=== PATIENT | male | born 1940 | race Caucasian/White ===

== ENCOUNTER 2016-11-21 13:46 | Emergency (ER) | payer MEDICARE, MEDICAID ==
[~2016-11-21] VITALS: Ht 172.7 cm; Wt 86.4 kg
[~2016-11-21 13:46] MED LIST: ALBU8.5H2 IH; ASPI-973 PO; ATOR20TA PO; AZIT250T4 PO; BUDE0.5A2 IH; CALC500T53 PO; CHOL100043 PO; FLUT16SP NS; FUR20 PO; GLUC-181 PO; IPRA3AMP IH; MENT71OI TOPICAL; POTA10CA42 PO; PRED10TA21 PO; SENN25TA PO; SODI126M NS; TAMS0.4C29 PO
[2016-11-21 14:07] VITALS: BP 116/76; PULSE 46; RESP 19; O2SAT 95
--- NOTE | 2016-11-21 14:33 | ED.REPORT ---
HPI-General Illness Date of Service Nov 21, 2016 ED Provider: Jaimie Jay MD Pt is a 76 y/o male w/ a hx of severe COPD on 4L home O2, recurrent pneumonia, CAD, pulmonary nodule, melanoma, presenting to the ED with his c/o generalized weakness onset 6 days ago. Pt c/o associated increased SOB from baseline, increased cough. He denies CP, abdominal pain, nausea, vomiting, diarrhea. His symptoms today are very similar to previous episodes of pneumonia. He has been off hospice treatment for 1 week now. Code status via POLST form: DNR and DNI Nursing Notes Stated Complaint: LOW OXYGEN LEVEL Chief Complaint: Respiratory Distress Nursing Notes Reviewed: Yes Allergies: Coded Allergies: No Known Allergies (Unverified , 11/21/16) Scheduled Aspirin (Aspirin) 81 Mg Tablet.dr 81 MG PO DAILY Atorvastatin (Lipitor) 20 Mg Tablet 20 MG PO HS Azithromycin (Zithromax (Z-Pernell)) 250 Mg Tablet 250 MG PO Mon, Wed, Fri Azithromycin (Zithromax (Z-Pernell)) 250 Mg Tablet 250 MG PO DAILY Budesonide Neb Soln (Budesonide Neb Soln) 0.5 Mg/2 Ml Ampul.neb 0.5 MG IH BID Calcium Carbonate (Calcium Carbonate) 200 Mg Tab.chew 400 MG PO BID Cefuroxime Axetil (Cefuroxime) 500 Mg Tablet 500 MG PO BID Cholecalciferol (Vitamin D3) (Vitamin D) 1,000 Unit Tablet 1,000 UNIT PO 3XW take with tums Fluticasone Propionate (Fluticasone Propionate Nasal) 16 Gm [place].susp 2 SPRAY NS DAILY Furosemide (Furosemide) 20 Mg Tab 40 MG PO DAILY Gluc/Fransisco-MSM#1/C/Stephen/Jacob/Bor (Osteo Bi-Flex Caplet) 1 Each Tablet 2 EACH PO DAILY Menthol/Zinc Oxide Oint (Calmoseptine Oint) 71 Gm Oint...g. 1 APPLIC TOPICAL TID Potassium Chloride (Potassium Chloride) 10 Meq Capsule.er 10 MEQ PO DAILY TAKE WITH FOOD Prednisone (PredniSONE Dose Pernell) 10 Mg Tab.ds.pk 1 TABLET PO UD 4 tabs for 2 days, then 3 tabs for 2 days, then 2 tabs for 2 days, then 1 tab for 2 days Prednisone (PredniSONE) 10 Mg Tablet 10 MG PO DAILY 40mg daily for 7 days on 11/29, decrease to 30mg daily on 12/06 decrease to 20mg daily on 12/13 decrease to 10mg daily and continue Tamsulosin ER (Tamsulosin ER) 0.4 Mg Cap.er.24h 0.4 MG PO DAILY Scheduled PRN Albuterol HFA (Proair HFA) 8.5 Gm Hfa.aer.ad 2 PUFFS IH Q4 PRN PRN For Shortness of Breath Ipratropium/Albuterol Sulfate (Iprat-Albut 0.5-3(2.5) mg/3 mL Inhalant Soln) 3 Ml Ampul.neb 3 ML IH Q4 PRN PRN For Shortness of Breath Sennosides (Laxative) 25 Mg Tablet 1-2 TAB PO DAILY PRN PRN For Constipation Sodium Chloride (Saline Nasal Mist) 126 Ml Mist 1 SPRAY NS PRN PRN PRN For Congestion General Time Seen by MD: 14:27 Chief Complaint Not feeling well Hx Obtained From: Patient Arrived By: Walk-in Sudden in Onset?: No Onset Occurred: 6 days ago Symptom Duration: Since onset Severity: Current: No pain currently Severity: Maximum: No pain Recent Healthcare: Previous diagnosis Similar Sx Previous: Yes Past Medical History Past Medical History Notes: Code status via POLST form: DNR and DNI - see palliative care note for treatment guidelines Past Medical History Severe COPD, 4 liters oxygen dependent - chronic respiratory failure AAA CAD w/ hx of NSTEMI Melanoma Hyperlipidemia Emphysema Polyps and diverticulitis Recurrent pneumonia Varicose veins DVT in the following a fibular fracture of the right leg. Slow to heal right tibial large leg ulceration also 30 years ago related to fibular fracture. History of AAA Benign prostatic hypertrophy Hx kidney stones UTI Suspected sleep apnea Pulmonary Nodule Arthritis Pressure ulcer Stasis dermatitis Past Surgical History Right knee surgery. Colon resection in 1999, reportedly for polyps and diverticulitis. 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 Prior 60 years of smoking - cessation date December 2013 Alcohol Use: Denies alcohol use Drug Use: Denies drug use Other Social History: , Local resident Ambulatory Status Independent Review of Systems Full Review of Systems Constitutional: Reports: Fatigue, Weakness - generalized Respiratory: Reports: Dyspnea on exertion, Non-productive cough, Shortness of breath Cardiovascular: Denies: Chest pain, Edema GI: Denies: Abdominal pain, Diarrhea, Nausea, Vomiting Complete sys rev & neg: except as marked. Physical Exam Vital Signs Vital Signs Date Time Temp Pulse Resp B/P Pulse Ox O2 Delivery O2 Flow Rate FiO2 11/21/16 15:42 87 16 105/67 95 Nasal Cannula 3 11/21/16 14:07 36.6 46 19 116/76 95 Room Air Initial VS: Reviewed, Vital signs abnormal Head / Eyes: Atraumatic, Normocephalic, PERRL ENT: Mucous membranes moist, Conjunctiva normal, No scleral icterus Neck: Supple, Full range of motion Cardiovascular: Regular rate & rhythm, Heart sounds normal, Intact distal pulses Abdomen / GI: Soft, Non-tender Skin: Warm, Dry, No cyanosis Neurologic: Alert, Oriented, Nonfocal Psychiatric: Mood/affect normal, Behavior normal, Normal thought content General/Constitutional: Awake, Alert, Cooperative Distress / Hydration: Positive: Distress mild Chronically ill-appearing Respiratory / Chest: Atraumatic, No retractions, No stridor, No chest tenderness, No chest wall deformity, No crepitus Resp Distress / Stridor: Positive: Resp distress mild Rhonchi bilaterally, Scattered wheezes throughout with poor air movement throughout Lower Extremity / Pelvis / MS: No deformity, Neurologic intact, Vascular intact Right leg swollen compared to left - he states this is chronic Interpretation & Diagnostics Lab Results Interpretation Result Diagram: 11/21/16 1445 11/21/16 1445 Test 11/21/16 14:45 11/21/16 16:27 White Blood Count 8.1th/mm3 (3.8-10.1) Red Blood Count 4.93mil/mm3 (4.40-5.80) Hemoglobin 13.8g/dL (13.8-17.2) Hematocrit 44.1% (41.0-50.0) Mean Corpuscular Volume 89.5fL (81-100) Mean Corpuscular Hemoglobin 28.0pg (27.0-35.0) Mean Corpuscular Hemoglobin Concent 31.3% (32.0-37.0) Red Cell Distribution Width 13.7% (12.3-15.4) Platelet Count 200bil/L (150-400) Neutrophils (%) (Auto) 81.6% (40-74) Lymphocytes (%) (Auto) 4.8% (14-46) Monocytes (%) (Auto) 13.3% (4-12) Eosinophils (%) (Auto) 0% (0-5) Basophils (%) (Auto) 0.1% (0-3) D-Dimer 1.0mg/L (<0.50) Sodium Level 139mEq/L (134-144) Potassium Level 3.8mEq/L (3.5-5.2) Chloride Level 91mEq/L (97-108) Carbon Dioxide Level 33mmol/L (18-29) Blood Urea Nitrogen 17mg/dL (8-27) Creatinine 0.68mg/dL (0.76-1.27) Estimat Glomerular Filtration Rate 121mL/min (>59) Glucose Level 111mg/dL (60-99) Lactic Acid Level 1.7mmol/L (0.4-2.0) Calcium Level 9.2mg/dL (8.5-10.1) Total Bilirubin 0.7mg/dL (0.0-1.2) Aspartate Amino Transf (AST/SGOT) 47U/L (0-50) Alanine Aminotransferase (ALT/SGPT) 19U/L (0-44) Alkaline Phosphatase 60U/L (25-160) Troponin T 0.013ug/L (0.0-0.011) Pro-B-Type Natriuretic Peptide 293.5pg/mL (0-486) Total Protein 6.4g/dL (6.4-8.4) Albumin 3.3g/dL (3.4-5.0) Procalcitonin 0.27ng/mL (0.00-0.08) Urine Color Dark yellow (YELLOW) Urine Appearance Hazy (CLEAR,HAZY) Urine pH 6.5 (5.0-8.0) Urine Specific [place] 1.015 (1.003-1.035) Urine Protein Tracemg/dL (NEG,TRACE) Urine Glucose (UA) Negativemg/dL (NEGATIVE) Urine Ketones Negativemg/dL (NEGATIVE) Urine Occult Blood Large (NEGATIVE) Urine Nitrite Negative (NEGATIVE) Urine Bilirubin Negative (NEGATIVE) Urine Urobilinogen Normalmg/dL (NORMAL) Urine Leukocyte Esterase Small (NEGATIVE) Urine RBC >50/hpf (0-2) Urine WBC 11-50/hpf (0-5) Urine Epithelial Cells Occasional/hpf (NONE-MOD) Urine Crystals None seen (NONE SEEN) Urine Bacteria Few/hpf (NONE-FEW) Urine Hyaline Casts Occasional/lpf (NONE) Urine Granular Casts None seen (NONE SEEN) Urine Waxy Casts None seen (NONE SEEN) Urine Red Blood Cell Casts None seen (NONE SEEN) Urine White Blood Cell Casts None seen (NONE SEEN) Urine Mucus Present (None Seen) Urine Trichomonas None seen (NONE SEEN) Urine Yeast None (NONE SEEN) Urinalysis Comment None Urine Culture Reflexed Indicated ECG Interpretation ECG Interpretation: Sinus rhythm rate 98 Multiple PVCs RBBB No change from previous Time: 16:30 Interpreted by: ED physician Normal ECG Interpretation: No acute ischemic changes X-Ray Chest Interpretation Chest Xray Interpretation: IMPRESSION: Right basilar airspace opacity which may represent postinflammatory scarring but recurrent pneumonia cannot be excluded. Correlate clinically. Continued radiographic surveillance to resolution is recommended. Dictated by: Dung Gibson RRA Interpreted: Gely Taylor MD on 11/21/2016 at 15:52 Transcribed by: FERNY on 11/21/2016 at 15:53 View: Portable, 1 view Interpretation / Wet Read by: Interpret - Radiologist Re-Eval/Medical Decision Med Decision/Clinical Course presents with increasing dyspnea. recently was discharged from hospice. Has end-stage lung disease is on 4 L of oxygen at home. He was admitted a little over a year ago with a right-sided pneumonia and has recurrent right-sided pneumonia today. We had a very long discussion about his care. He opted to not be admitted did not want to have antibiotics and did not want to go home with oral antibiotics and prednisone. He has oxygen and nebulizers available at home. He understands that this pneumonia could worsen and if that would happen he likely will . He would like to re-and wall in hospice and his girls at this time is to stay at home as comfortably as he is able to. Phone call was made to hospice they will contact him tomorrow. Prednisone cefuroxime and Zithromax were filled at [facility] pharmacy and patient have them to begin first thing in the morning. He got 2 g of IV ceftriaxone in the emergency department Time of Eval: 16:49 Re-Evaluation/Progress Note: Pt rechecked. Discussed admission vs discharge and goals of care. He would like to be discharged so that he can be more comfortable at home and consider getting back into hospice. He would like antibiotic treatment at this time. He fully understands that he may if he does not improve. Informed pt of plan for treatment. Pt understands and agrees with plan for treatment. F/U and RTER warnings given. All questions addressed. Time of Eval: 18:02 Re-Evaluation/Progress Note: Pt rechecked. He is feeling better after the breathing treatment and is ready to go home. Consultation : Call Returned at: 17:12 Security Vehicle Patrol Officer: Agrees with eval, Agrees with plan Note: Case discussed with hospice. Hospice will contact them in the morning to reestablish care. Counseled Regarding: Diagnosis, Lab results, Need for follow-up, When/why to return to ED Discharge & Departure Primary Impression: Recurrent pneumonia Additional Impressions: Right lower lobe pneumonia Pneumonia type: due to unspecified organism Qualified Code: J18.9 - Pneumonia, unspecified organism COPD with acute exacerbation Disposition: Home Discharge Condition All VS Reviewed: Yes Condition: Stable Patient Instructions: Bacterial Pneumonia (ED) Additional Instructions: Your x-ray showed a right lower lung pneumonia. Your severe lung disease causes this to be a life-threatening condition. I respect your choice for outpatient treatment. Take the antibiotics as prescribed, curoxime 500mg am and pm for 10 days (you can crush it). azithromycin, 250mg for 4 days ( you can crush this too). Prednisone taper, 40mg for 1 week, 30mg for 1 week, 20mg 1week and then continue your usual 10mg daily. I was able to contact hospice today. They will call you tomorrow morning to restart care. Return to the emergency department if your breathing worsens, for high fever, vomiting, chest pain, or for other concerning symptoms. Follow-up with hospice as directed. I wish you the best Referrals: Genesis Ramos MD (PCP) Adia Attestation Portions of this note were transcribed by Latrell Lopes. I, Dr. Jay personally performed the history, physical exam and medical decision-making; I reviewed and confirmed the accuracy of the information in the transcribed note. Signed by Adia Jonas, 11/21/16 - 1600 copies to: Genesis Ramos MD, Shawna L MD Nov 21, 2016 14:33 LATRELL LOPES Nov 21, 2016 15:28
[2016-11-21 14:54] LABS: BASOPHILS % (AUTO) 0.1 % (0-3); EOSINOPHILS % (AUTO) 0 % (0-5); MONOCYTES % (AUTO) 13.3 % (4-12); Mean Corpuscular Volume 89.5 fL (81-100); NEUTROPHILS % (AUTO) 81.6 % (40-74); Platelet Count 200 bil/L (150-400)
[2016-11-21 15:30] LABS: TROPONIN T 0.013 ug/L (0.0-0.011)
[2016-11-21 15:42] VITALS: BP 105/67; PULSE 87; RESP 16; O2SAT 95
--- NOTE | 2016-11-21 15:53 | DRSVH ---
PROCEDURE: X-RAY CHEST ONE VIEW, PORTABLE ([id number]) INDICATIONS: dyspnea TECHNIQUE: One view of the chest was acquired. COMPARISON: [facility], CR, XR CHEST 1VW (PORTABLE), 09/23/2015, 1:30. FINDINGS: Surgical changes and devices: None. Lungs and pleura: No pleural effusions or pneumothorax. Airspace opacity involves the right lung ba se otherwise lungs are hyperinflated and clear. No pleural effusion or pneumothorax. Mediastinum: Mediastinal contours appear normal. Heart size is normal. Bones and chest wall: No suspicious bony lesions. Overlying soft tissues appear unremarkable. IMPRESSION: Right basilar airspace opacity which may represent postinflammatory scarring but recurren t pneumonia cannot be excluded. Correlate clinically. Continued radiographic surveillance to resolut ion is recommended. Dictated by: Dung Gisbon [facility] Interpreted: Gely Taylor MD on 11/21/2016 at 15:52 Transcribed by: FERNY on 11/21/2016 at 15:53 Approved by: Gely Taylor MD, PhD on 11/21/2016 at 16:14
[2016-11-21] MEDS ORDERED: Vancomycin Dose per Pharmacist XX ONE (16:40)
[2016-11-21] MEDS ORDERED: Piperacillin-Tazo 3.375 Gm Inj 3.375 GM in Dextrose 5% Minibag Plus 50 ML IV ONE (16:40)
[2016-11-21] MEDS ORDERED: levoFLOXacin Inj 750 MG in IV Premix 1 EACH IV ONE (16:40)
[2016-11-21] MEDS ORDERED: Vancomycin Inj 1,750 MG in 0.9% Sodium Chloride 500 ML IV ONE (16:50)
[2016-11-21] MEDS ORDERED: cefTRIAXone Inj 2,000 MG in Dextrose 5% Minibag Plus 50 ML IV ONE (16:55)
[2016-11-21] MEDS ORDERED: MethylprednisoLONE Sodium Succinate 62.5 mg/mL 2 mL Inj IVPUSH ONE (16:55)
[2016-11-21 16:59] LABS: APPEARANCE,URINE HAZY (CLEAR,HAZY); COLOR,URINE DARK YELLOW (YELLOW)
[2016-11-21 17:00] LABS: OCCULT BLOOD,URINE LARGE (NEGATIVE); PH,URINE 6.5 (5.0-8.0); UROBILINOGEN,URINE NORMAL (NORMAL)
[2016-11-21] MEDS ORDERED: CEFU500T61 PO (17:03)
[2016-11-21] MEDS ORDERED: AZIT250T4 PO (17:03)
[2016-11-21] MEDS ORDERED: PRE10 PO (17:03)
[2016-11-21] MEDS ORDERED: Albuterol-Ipratropium 3 mL Inhalation Solution NEB ONE (17:15)
[2016-11-21 17:28] VITALS: PULSE 86; RESP 19; O2SAT 94
[2016-11-21 18:29] VITALS: BP 131/66; PULSE 94; RESP 17; O2SAT 92
== END 2016-11-21 18:20 | disposition home or self-care (01) ==
LOC: SED 13:46 → UNDOADMIN 17:16 → MPC 17:16 → SED 18:20
DX: J18.9 Pneumonia, unspecified organism (principal); J44.1 Chronic obstructive pulmonary disease with (acute) exacerbation; I25.2 Old myocardial infarction; I25.10 Atherosclerotic heart disease of native coronary artery without angina pectoris; E78.5 Hyperlipidemia, unspecified; Z86.79 Personal history of other diseases of the circulatory system; Z87.01 Personal history of pneumonia (recurrent); Z87.891 Personal history of nicotine dependence; Z87.440 Personal history of urinary (tract) infections; Z86.718 Personal history of other venous thrombosis and embolism; Z87.448 Personal history of other diseases of urinary system; Z85.828 Personal history of other malignant neoplasm of skin; Z79.51 Long term (current) use of inhaled steroids; Z79.52 Long term (current) use of systemic steroids; Z79.82 Long term (current) use of aspirin
CPT/HCPCS: 36415; 71010; 80053; 81000; 83605; 83880; 84145; 84484; 85025; 85379; 86403; 87040; 87086; 87088; 93005; 96365; 96375; 99285; J0696; J2930; J7620

== ENCOUNTER 2016-12-06 14:48 | Emergency (ER) | payer MEDICARE, MEDICAID ==
[~2016-12-06] VITALS: Ht 172.7 cm; Wt 88.6 kg
[~2016-12-06 14:48] MED LIST changes: +CEFU500T61 PO; +PRE10 PO
--- NOTE | 2016-12-06 14:52 | ED.REPORT ---
HPI-General Illness Date of Service Dec 06, 2016 ED Provider: Dr. Pollard Pt is a 76 y/o male w/ a hx significant for RLE chronic ulcer, stasis dermatitis , kidney stones, presenting to the ED via EMS c/o worsening LLE redness, swelling, pain, and weeping onset today. The patient noticed increased bilateral lower extremity swelling and redness yesterday which has progressed to be worse about the LLE today. He denies nausea, vomiting, fever, chills. He incidentally is concerned about kidney stones as he has a long history of them and has been experiencing right flank and abdominal pain for the past 5 days, intermittent for the past 2 years which he is prescribed Morphine to treat. After his last ED visit, the plan was for him to be discharged and start up with hospice but he instead opted for palliative care which he prefers. PCP: Richard Nursing Notes Stated Complaint: SWELLING Nursing Notes Reviewed: Yes Allergies: Coded Allergies: No Known Allergies (Unverified , 11/21/16) Scheduled Aspirin (Aspirin) 81 Mg Tablet.dr 81 MG PO DAILY Atorvastatin (Lipitor) 20 Mg Tablet 20 MG PO HS Azithromycin (Zithromax (Z-Pernell)) 250 Mg Tablet 250 MG PO Mon, Wed, Fri Azithromycin (Zithromax (Z-Pernell)) 250 Mg Tablet 250 MG PO DAILY Budesonide Neb Soln (Budesonide Neb Soln) 0.5 Mg/2 Ml Ampul.neb 0.5 MG IH BID Calcium Carbonate (Calcium Carbonate) 200 Mg Tab.chew 400 MG PO BID Cefuroxime Axetil (Cefuroxime) 500 Mg Tablet 500 MG PO BID Cephalexin (Cephalexin) 500 Mg Capsule 500 MG PO TID Cholecalciferol (Vitamin D3) (Vitamin D) 1,000 Unit Tablet 1,000 UNIT PO 3XW take with tums Fluticasone Propionate (Fluticasone Propionate Nasal) 16 Gm [place].susp 2 SPRAY NS DAILY Furosemide (Furosemide) 20 Mg Tab 40 MG PO DAILY Gluc/Fransisco-MSM#1/C/Stephen/Jacob/Bor (Osteo Bi-Flex Caplet) 1 Each Tablet 2 EACH PO DAILY Menthol/Zinc Oxide Oint (Calmoseptine Oint) 71 Gm Oint...g. 1 APPLIC TOPICAL TID Potassium Chloride (Potassium Chloride) 10 Meq Capsule.er 10 MEQ PO DAILY TAKE WITH FOOD Prednisone (PredniSONE Dose Pernell) 10 Mg Tab.ds.pk 1 TABLET PO UD 4 tabs for 2 days, then 3 tabs for 2 days, then 2 tabs for 2 days, then 1 tab for 2 days Prednisone (PredniSONE) 10 Mg Tablet 10 MG PO DAILY 40mg daily for 7 days on 11/29, decrease to 30mg daily on 12/06 decrease to 20mg daily on 12/13 decrease to 10mg daily and continue Tamsulosin ER (Tamsulosin ER) 0.4 Mg Cap.er.24h 0.4 MG PO DAILY Scheduled PRN Albuterol HFA (Proair HFA) 8.5 Gm Hfa.aer.ad 2 PUFFS IH Q4 PRN PRN For Shortness of Breath Ipratropium/Albuterol Sulfate (Iprat-Albut 0.5-3(2.5) mg/3 mL Inhalant Soln) 3 Ml Ampul.neb 3 ML IH Q4 PRN PRN For Shortness of Breath Sennosides (Laxative) 25 Mg Tablet 1-2 TAB PO DAILY PRN PRN For Constipation Sodium Chloride (Saline Nasal Mist) 126 Ml Mist 1 SPRAY NS PRN PRN PRN For Congestion General Time Seen by MD: 14:51 Chief Complaint Other (LLE swelling) Hx Obtained From: Patient Arrived By: Walk-in Sudden in Onset?: No Onset Occurred: Yesterday Symptom Duration: Since onset Location: : Leg left Quality: Painful Severity: Current: Mild Severity: Maximum: Mild Similar Sx Previous: Yes Past Medical History Past Medical History Notes: Code status via POLST form: DNR and DNI - see palliative care note for treatment guidelines Past Medical History Severe COPD, 4 liters oxygen dependent - chronic respiratory failure AAA CAD w/ hx of NSTEMI Melanoma Hyperlipidemia Emphysema Polyps and diverticulitis Recurrent pneumonia Varicose veins DVT in the 1980s following a fibular fracture of the right leg. Slow to heal right tibial large leg ulceration also 30 years ago related to fibular fracture. Benign prostatic hypertrophy Hx kidney stones - one 8 x 8 cm requiring surgical intervention UTI Suspected sleep apnea Pulmonary Nodule Arthritis Pressure ulcer Stasis dermatitis Past Surgical History Right knee surgery. Colon resection in 1999, reportedly for polyps and diverticulitis. 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 Prior 60 years of smoking - cessation date December 2013 Alcohol Use: Denies alcohol use Drug Use: Denies drug use Other Social History: , Local resident Ambulatory Status Independent Review of Systems Full Review of Systems Constitutional: Denies: Chills, Fever Respiratory: Denies: Non-productive cough, Shortness of breath Cardiovascular: Denies: Chest pain, Dyspnea on exertion GI: Reports: Abdominal pain, Denies: Diarrhea, Nausea, Vomiting Male: Reports Flank pain, Denies Incontinence Musculoskeletal: Reports: Extremity pain, Extremity swelling Skin: Reports Rash, Reports Swelling, Denies Bruising, Denies Itching Complete sys rev & neg: except as marked. Physical Exam Vital Signs Vital Signs Date Time Temp Pulse Resp B/P Pulse Ox O2 Delivery O2 Flow Rate FiO2 12/06/16 17:57 74 16 106/61 92 Nasal Cannula 3 12/06/16 17:57 74 16 106/51 92 Nasal Cannula 4 12/06/16 15:06 36.8 82 14 132/62 94 Nasal Cannula 3 Initial VS: Reviewed, Vital signs normal (nl for patient's baseline) Head / Eyes: Atraumatic, Normocephalic, PERRL ENT: Mucous membranes moist, Conjunctiva normal, No scleral icterus Neck: Supple, Full range of motion Extremities: Vascular intact, Neuro intact, No tenderness Neurologic: Alert, Oriented, Nonfocal Psychiatric: Mood/affect normal, Behavior normal, Normal thought content General/Constitutional: Awake, Alert, No acute distress, Cooperative, Not toxic appearing Appearance / Presentation: Positive: Uncomfortable Respiratory / Chest: Atraumatic, Breath sounds = bilat, No respiratory distress , No rales, No rhonchi, No retractions, No stridor, No chest tenderness, No chest wall deformity, No crepitus Scattered wheezes Cardiovascular: Heart rate NL, Regular rhythm, Heart sounds NL, No gallop, No murmurs, No rubs, Cap refill not delayed, Peripheral circulation NL Bilateral chronic venous stasis changes and edema, weeping present Abdomen: Atraumatic, Soft, No guarding, No rebound, BS normoactive Bowel Sounds / Distention: Positive: Distention mild Mild-moderate tenderness about the RUQ and RLQ which he states is chronic Interpretation & Diagnostics Interpretation & Diagnostics: CT KUB no contrast: IMPRESSION: 1. No change in bilateral nonobstructing renal calculi. No change in large right renal pelvic calculus. 2. New mild right ureteral dilatation. Right mid and distal ureter not well seen; small obstructing right ureteral calculus consequently cannot be excluded. 3. Increased urinary bladder calculi, one of which may have recently passed from the right ureter. 4. New right middle lobe pneumonia. Resolved right posterior lung base mass. 5. Bilateral femoral head avascular necrosis. Dictated by: Khris Bates M.D. on 12/06/2016 at 16:55 Approved by: Khris Bates M.D. on 12/06/2016 at 17:00 Lab Results Interpretation Result Diagram: 12/06/16 1500 12/06/16 1500 Test 12/06/16 15:00 12/06/16 16:04 White Blood Count 11.9th/mm3 (3.8-10.1) Red Blood Count 4.74mil/mm3 (4.40-5.80) Hemoglobin 13.2g/dL (13.8-17.2) Hematocrit 42.2% (41.0-50.0) Mean Corpuscular Volume 89.0fL (81-100) Mean Corpuscular Hemoglobin 27.8pg (27.0-35.0) Mean Corpuscular Hemoglobin Concent 31.3% (32.0-37.0) Red Cell Distribution Width 14.5% (12.3-15.4) Platelet Count 319bil/L (150-400) Neutrophils (%) (Auto) 88.4% (40-74) Lymphocytes (%) (Auto) 4.9% (14-46) Monocytes (%) (Auto) 6.0% (4-12) Eosinophils (%) (Auto) 0% (0-5) Basophils (%) (Auto) 0.2% (0-3) Sodium Level 135mEq/L (134-144) Potassium Level 4.4mEq/L (3.5-5.2) Chloride Level 91mEq/L (97-108) Carbon Dioxide Level 32mmol/L (18-29) Blood Urea Nitrogen 13mg/dL (8-27) Creatinine 0.68mg/dL (0.76-1.27) Estimat Glomerular Filtration Rate 121mL/min (>59) Glucose Level 135mg/dL (60-99) Calcium Level 9.2mg/dL (8.5-10.1) Total Bilirubin 0.5mg/dL (0.0-1.2) Aspartate Amino Transf (AST/SGOT) 22U/L (0-50) Alanine Aminotransferase (ALT/SGPT) 22U/L (0-44) Alkaline Phosphatase 61U/L (25-160) Total Protein 6.2g/dL (6.4-8.4) Albumin 3.3g/dL (3.4-5.0) Hold Brennan Top Tube Received (Received) Urine Color Yellow (YELLOW) Urine Appearance Clear (CLEAR,HAZY) Urine pH 8.5 (5.0-8.0) Urine Specific [place] 1.010 (1.003-1.035) Urine Protein Negativemg/dL (NEG,TRACE) Urine Glucose (UA) Negativemg/dL (NEGATIVE) Urine Ketones Negativemg/dL (NEGATIVE) Urine Occult Blood Trace (NEGATIVE) Urine Nitrite Negative (NEGATIVE) Urine Bilirubin Negative (NEGATIVE) Urine Urobilinogen Normalmg/dL (NORMAL) Urine Leukocyte Esterase Trace (NEGATIVE) Urine RBC 3-10/hpf (0-2) Urine WBC 6-10/hpf (0-5) Urine Epithelial Cells Occasional/hpf (NONE-MOD) Urine Crystals None seen (NONE SEEN) Urine Bacteria None/hpf (NONE-FEW) Urine Hyaline Casts None/lpf (NONE) Urine Granular Casts None seen (NONE SEEN) Urine Waxy Casts None seen (NONE SEEN) Urine Red Blood Cell Casts None seen (NONE SEEN) Urine White Blood Cell Casts None seen (NONE SEEN) Urine Mucus None seen (None Seen) Urine Trichomonas None seen (NONE SEEN) Urine Yeast None (NONE SEEN) Urinalysis Comment None Urine Culture Reflexed Indicated Re-Eval/Medical Decision Time of Eval: 17:32 Re-Evaluation/Progress Note: Pt rechecked. He is feeling much better. Informed pt of plan for treatment. Pt understands and agrees with plan for treatment. F/U instructions and RTER warnings given. All questions addressed. After his last ED visit, he was not able to get back into hospice but is in palliative care which is what he prefers. Counseled Regarding: Diagnosis, Lab results, Need for follow-up, When/why to return to ED Discharge & Departure Primary Impression: UTI (urinary tract infection) Urinary tract infection type: site unspecified Hematuria presence: without hematuria Qualified Code: N39.0 - Urinary tract infection, site not specified Additional Impressions: Nephrolithiasis Stasis dermatitis of both legs Disposition: Home Discharge Condition All VS Reviewed: Yes Condition: Stable Patient Instructions: Renal Colic (ED), Urinary Tract Infection in Men (ED) Additional Instructions: In the ED today we evaluated you for R flank pain. No new ureteral stone was seen. UA suggested possible UTI, this will be more clear in 1-2 days when cultures are back. In the meantime, we will start antibiotics, cephalexen 500mg 3 times a day. Continue previous home medications for pain. Return for fevers or vomiting. Follow up with palliative care next week. Referrals: Genesis Ramos MD (PCP) Savannah Rodriguez MD Attestation Portions of this note were transcribed by Latrell Lopes. I, Dr. Pollard personally performed the history, physical exam and medical decision-making; I reviewed and confirmed the accuracy of the information in the transcribed note. Signed by Adia Jonas, 12/06/16 - 1500 copies to: Genesis Ramos MD, Donald L MD Dec 06, 2016 14:51 LATRELL LOPES Dec 06, 2016 14:53
[2016-12-06] MEDS ORDERED: Ondansetron 2 mg/mL 2 mL Inj IV PRN (14:55)
[2016-12-06] MEDS ORDERED: Ketorolac 15 mg/mL Inj IV ONE (14:55)
[2016-12-06 15:06] VITALS: BP 132/62; PULSE 82; RESP 14; O2SAT 94
[2016-12-06 15:09] LABS: BASOPHILS % (AUTO) 0.2 % (0-3); EOSINOPHILS % (AUTO) 0 % (0-5); Mean Corpuscular Hemoglobin 27.8 pg (27.0-35.0); NEUTROPHILS % (AUTO) 88.4 % (40-74); Platelet Count 319 bil/L (150-400)
[2016-12-06] MEDS ORDERED: oxyCODONE-Acetamin 5-325 mg Tablet PO ONE (15:55)
[2016-12-06 16:47] LABS: APPEARANCE,URINE CLEAR (CLEAR,HAZY); COLOR,URINE YELLOW (YELLOW); OCCULT BLOOD,URINE TRACE (NEGATIVE); PH,URINE 8.5 (5.0-8.0); UROBILINOGEN,URINE NORMAL (NORMAL)
--- NOTE | 2016-12-06 17:02 | DRSVH ---
PROCEDURE: CT KUB ([id number]) INDICATIONS: r flank pain TECHNIQUE: Noncontrast 5 mm thick sections acquired from the diaphragms to the symphysis. 5 mm thick coronal an d sagittal reformats were then performed. For radiation dose reduction, the following was used: aut omated exposure control, adjustment of mA and/or kV according to patient size. COMPARISON: [facility], CT, CT KUB, 04/26/2015, 15:12. [facility], CT, KUB - CT ([facility]), 11/15/2014, 7:38. [facility], CT, KUB - CT ([facility]), 10/03/2009, 10:02. FINDINGS: Image quality: Excellent. Lung bases: New airspace opacity within the right middle lobe. Previously seen nodular density within the right lung base posteriorly has resolved. Heart size is normal. Urinary system: Both kidneys are normal in size. The 17 mm right renal pelvic calculus is present, a s before. No change in nonobstructing bilateral renal calculi. Bilateral renal cysts are present. The re is no hydronephrosis bilaterally. There is new mild right ureteral dilatation. The right mid and d istal ureter are not well seen. Left ureter is grossly unremarkable. Bladder wall thickness is normal . There are urinary bladder and roughly 4 urinary bladder calculi, largest of which measure 9 mm and 17 mm. Other solid organs: Liver and spleen are normal in size. Gallbladder is within normal limits. Panc reas is normal in contours. No adrenal nodules. Peritoneum and bowel: Unenhanced bowel loops demonstrate normal wall thickness and caliber. No free fluid or air. Nodes and vessels: No retroperitoneal or mesenteric adenopathy by size criteria. IVC is within estela l limits. 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 Abdominal wall: No ventral hernias. Pelvis: No free pelvic fluid. No inguinal hernias or adenopathy. Bones: No suspicious bony lesions. Bilateral femoral head indentation and lucency is present, as bef ore. No vertebral body compression fractures. IMPRESSION: 1. No change in bilateral nonobstructing renal calculi. No change in large right renal pelvic calculu s. 2. New mild right ureteral dilatation. Right mid and distal ureter not well seen; small obstructing r ight ureteral calculus consequently cannot be excluded. 3. Increased urinary bladder calculi, one of which may have recently passed from the right ureter. 4. New right middle lobe pneumonia. Resolved right posterior lung base mass. 5. Bilateral femoral head avascular necrosis. Dictated by: Khris Bates M.D. on 12/06/2016 at 16:55 Approved by: Khris Bates M.D. on 12/06/2016 at 17:00
[2016-12-06] MEDS ORDERED: CEPH500C PO (17:44)
[2016-12-06 17:57] VITALS: BP_SYST 106; BP_DIAS 51; BP_DIAS 61; PULSE 74; RESP 16; O2SAT 92
== END 2016-12-06 17:58 | disposition home or self-care (01) ==
LOC: SED 14:48
DX: N39.0 Urinary tract infection, site not specified (principal); N20.0 Calculus of kidney; I87.2 Venous insufficiency (chronic) (peripheral); J44.9 Chronic obstructive pulmonary disease, unspecified; I25.10 Atherosclerotic heart disease of native coronary artery without angina pectoris; E78.5 Hyperlipidemia, unspecified; Z79.82 Long term (current) use of aspirin; Z87.01 Personal history of pneumonia (recurrent); Z87.891 Personal history of nicotine dependence; Z99.81 Dependence on supplemental oxygen; Z66 Do not resuscitate